=== PATIENT | male | born 1950 | race Caucasian/White ===

== ENCOUNTER 2025-01-16 14:39 | Inpatient (IN) | payer OTHER ==
[2025-01-16 15:49] VITALS: BMI 28.0
[2025-01-16] MEDS ORDERED: BISMUTH SUBSALICYLATE 524 MG/30 ML PO PRN (18:48)
[2025-01-16] MEDS ORDERED: IBUPROFEN 600 MG TABLET (FP) PO PRN (18:48)
[2025-01-16] MEDS ORDERED: guaiFENesin 600 MG TABLET.ER (FP) PO PRN (18:48)
[2025-01-16] MEDS ORDERED: P-EPHED 60MG/TRIPROLIDI 2.5MG TABLET PO PRN (18:48)
[2025-01-16] MEDS ORDERED: IBUPROFEN 400 MG TABLET (FP) PO PRN (18:48)
[2025-01-16] MEDS ORDERED: LOPERAMIDE HCL 2 MG CAPSULE PO PRN (18:48)
[2025-01-16] MEDS ORDERED: NALOXONE (NARCAN) HCL 4 MG/0.1 ML SPRAY NS PRN (18:48)
[2025-01-16] MEDS ORDERED: MAGNESIUM HYDROX 2400MG/30ML ORAL SUSPENSION 30 ML CUP PO PRN (18:48)
[2025-01-16] MEDS ORDERED: NICOTINE POLACRILEX 2 MG GUM BUC PRN (18:48)
[2025-01-16] MEDS ORDERED: BENZONATATE 200 MG CAPSULE PO PRN (18:48)
[2025-01-16] MEDS ORDERED: BENZOCAINE/MENTHOL (CHLORASEPTIC ) LOZENGE MM PRN (18:48)
[2025-01-16] MEDS ORDERED: MAG HYDROX/AL HYDROX/SIMETH 30 ML UNIT-DOSE CUP PO PRN (18:48)
[2025-01-16] MEDS ORDERED: ACETAMINOPHEN 325 MG TABLET (FP) PO PRN (18:48)
[2025-01-16] MEDS ORDERED: ONDANSETRON *ODT* 4 MG TABLET SL PRN (18:48)
[2025-01-16] MEDS ORDERED: POLYETHYLENE GLYCOL (HEALTHYLAX) 3350 17 GM PACKET PO PRN (18:48)
[2025-01-16] MEDS: MELATONIN 5 MG TABLETS PO SCH (22:28)
[2025-01-16] MEDS: THIAMINE 100 MG TABLET PO SCH (22:28)
[2025-01-17] MEDS ORDERED: cloNIDine HCL 0.1 MG TABLET PO PRN (09:17)
[2025-01-17] MEDS ORDERED: methaDONE HCL 10 MG TABLET (FOR DETOX USE ONLY) PO PRN (09:17)
[2025-01-17] MEDS ORDERED: PATIENT'S OWN MEDICATION (NON-FORMULARY) (Amlodipine Besylate/Valsartan [Amlodipine-Valsar PO SCH (10:00)
[2025-01-17] MEDS: methaDONE HCL 10 MG TABLET (FOR DETOX USE ONLY) PO ONE (10:15)
[2025-01-17] MEDS: HYDROCHLOROTHIAZIDE 25 MG TABLET (FP) PO SCH (10:17)
[2025-01-17] MEDS: amLODIPine BESYLATE 10 MG TABLET (FP) PO SCH (10:17)
[2025-01-17] MEDS: ASPIRIN COATED 81 MG TABLET.EC PO SCH (10:17)
[2025-01-17] MEDS: PRENATAL VITAMINS W/ FOLIC ACID TABLET (FP) PO SCH (10:17)
[2025-01-17] MEDS: CLOPIDOGREL BISULFATE 75 MG TABLET (FP) PO SCH (10:17)
[2025-01-17] MEDS: VALSARTAN 160 MG TABLET PO SCH (10:55)
[2025-01-17 11:11] LABS: POTASSIUM 3.9 mmol/L (3.5-5.1)
[2025-01-17 11:13] LABS: HEMATOCRIT 35.7 % (35.4-49); MCH 28.5 pg (25.7-33.7); MCHC 33.5 g/dl (32.0-35.9); MEAN CELL VOLUME 85.1 fl (80-96); MEAN PLT VOLUME 9.1 fl (7.5-11.1); PLATELET COUNT 195 10^3/uL (134-434); RDW 14.8 % (11.9-15.9); WHITE BLOOD COUNT 5.7 K/mm3 (4.0-10.0)
[2025-01-17 11:20] LABS: ALBUMIN 3.3 g/dl (3.4-5.0); CALCIUM 8.9 mg/dL (8.5-10.1)
[2025-01-17 11:21] LABS: BLOOD UREA NITROGEN 15.8 mg/dL (7-18)
[2025-01-17 11:23] LABS: CREATININE 0.7 mg/dL (0.55-1.3)
[2025-01-17 11:24] LABS: BILIRUBIN,TOTAL 0.7 mg/dL (0.2-1); TOT PROT 6.5 g/dl (6.4-8.2)
[2025-01-17 12:48] LABS: HIV INTERPRETATION NEGATIVE (NEGATIVE)
[2025-01-17] MEDS: ATORVASTATIN CA 40 MG TABLET (FP) PO SCH (21:32)
[2025-01-18] MEDS: methaDONE HCL 10 MG TABLET (FOR DETOX USE ONLY) PO ONE (10:15)
[2025-01-19 05:47] VITALS: RESP 16
[2025-01-19 09:19] VITALS: BP 150/68; PULSE 80; TEMP 97.8
[2025-01-20] MEDS ORDERED: methaDONE HCL 10 MG TABLET (FOR DETOX USE ONLY) PO ONE (10:00)
[2025-01-22] MEDS ORDERED: methaDONE HCL 10 MG TABLET (FOR DETOX USE ONLY) PO ONE (10:00)
== END 2025-01-19 10:15 | disposition left against medical advice (07) | DRG 894 ==
LOC: YASAS 14:39 → Y3N 20:16
PROVIDERS: ADMIT Allergy & Immunology; ATTEND Allergy & Immunology
PROC: HZ2ZZZZ Detoxification Services for Substance Abuse Treatment (ICD-10-PCS; principal; 2025-01-16)
DX: F11.23 Opioid dependence with withdrawal (principal); F17.210 Nicotine dependence, cigarettes, uncomplicated; E78.2 Mixed hyperlipidemia; I25.10 Atherosclerotic heart disease of native coronary artery without angina pectoris; I10 Essential (primary) hypertension; I25.2 Old myocardial infarction; Z96.652 Presence of left artificial knee joint; Z99.89 Dependence on other enabling machines and devices
CPT/HCPCS: 36415; 80053; 80305; 80307; 85027; 86780; 87389; 93005; 93010